=== PATIENT | female | born 1965 | race Caucasian/White ===

== ENCOUNTER 2017-10-05 16:08 | Emergency (ER) | payer OTHER | END 2017-10-05 16:30 | disposition home or self-care (01) | LOC: E/R 16:08 | DX: S39.012A Strain of muscle, fascia and tendon of lower back, initial encounter (principal); X58.XXXA Exposure to other specified factors, initial encounter; Y92.89 Other specified places as the place of occurrence of the external cause | CPT/HCPCS: 99283; Z7502 ==